=== PATIENT | female | born 1955 | race Caucasian/White ===

== ENCOUNTER → 2019-03-12 | Outpatient (CLI) | payer BC, SELFPAY ==
--- NOTE | 2019-03-12 08:14 | BI_ITS ---
MAMMOGRAPHY - BILATERAL SCREENING REASON FOR EXAM: Female, 63 years old. Routine annual screening examination. PERTINENT HISTORY: Non-contributory. TECHNIQUE: Digital bilateral breast bibiana (3D mammographic acquisition) in the CC and MLO projections. 2-D mediolateral oblique (MLO) and craniocaudad (CC) views of both breasts were obtained. CAD: Full Field Digital Mammography with Computer Added Detection was performed. COMPARISON: Comparison is made with prior outside examination dated November 24, 2015. FINDINGS: Breast Composition: The breasts are heterogeneously dense, which may obscure small masses. There are no dominant masses or suspicious calcifications. Stable appearance of the benign-appearing bilateral axillary lymph nodes. No other significant abnormalities are identified. There has been no significant change since the prior study. BI/SCREEN MAMM (CAD) W/BIBIANA BILAT IMPRESSION: Stable bilateral screening mammogram. Yearly follow-up mammogram recommended. (A) ASSESSMENT CATEGORY: BIRADS Category 2: Benign. A letter regarding these results will be sent to the patient by the facility within 30 days. Approximately 10% of breast cancers are not detected by mammography. A normal mammogram should not delay biopsy of a clinically suspicious abnormality. [id number] Electronically Signed: Rick Smith, at 15:17 EDT , Service support ,
[2019-03-19 16:24] LABS: HPV APTIMA, High Risk Negative (Negative)
== END | disposition home or self-care (01) ==
PROVIDERS: Family Provider Family Medicine; PCP Family Medicine; Referring Provider Nurse Practitioner Women's Health; Visit Provider Nurse Practitioner Women's Health
DX: Z12.31 Encounter for screening mammogram for malignant neoplasm of breast (principal); Z12.4 Encounter for screening for malignant neoplasm of cervix
CPT/HCPCS: 77063; 77067; 87624; 88175; G0145

== ENCOUNTER → 2019-03-27 | Outpatient (CLI) | payer BC, SELFPAY ==
[2019-03-27 11:21] VITALS: BMI 37.3
[2019-04-01 20:52] LABS: HPV APTIMA, High Risk Negative (Negative)
== END | disposition home or self-care (01) ==
LOC: LABSPEC 14:43
PROVIDERS: Family Provider Family Medicine; PCP Family Medicine; Visit Provider Nurse Practitioner Women's Health
DX: R87.615 Unsatisfactory cytologic smear of cervix (principal)
CPT/HCPCS: 87624; 88175; G0145

== ENCOUNTER → 2020-03-16 07:58 | Outpatient (CLI) | payer BC, SELFPAY ==
[2019-03-27 11:21] VITALS: BMI 37.3
--- NOTE | 2020-03-16 07:58 | BI_ITS ---
MAMMOGRAPHY - BILATERAL SCREENING REASON FOR EXAM: Female, 64 years old. Routine annual screening examination. PERTINENT HISTORY: Non-contributory. TECHNIQUE: Digital bilateral breast bibiana (3D mammographic acquisition) in the CC and MLO projections. 2-D mediolateral oblique (MLO) and craniocaudad (CC) views of both breasts were obtained. CAD: Full Field Digital Mammography with Computer Added Detection was performed. COMPARISON: Comparison is made with prior study dated 03/12/2019. FINDINGS: Breast Composition: The breasts are heterogeneously dense, which may obscure small masses. There are no dominant masses or suspicious calcifications. Stable benign appearing bilateral axillary lymph nodes. No other significant abnormalities are identified. There has been no significant change since the prior study. BI/SCREEN MAMM (CAD) W/BIBIANA BILAT IMPRESSION: Stable bilateral screening mammogram. Yearly follow-up mammogram recommended. (A) ASSESSMENT CATEGORY: BIRADS Category 2: Benign. A letter regarding these results will be sent to the patient by the facility within 30 days. Approximately 10% of breast cancers are not detected by mammography. A normal mammogram should not delay biopsy of a clinically suspicious abnormality. [id number] Electronically Signed: Rick Smith, at 9:47 EDT , Service support ,
== END ==
PROVIDERS: PCP Family Medicine; Referring Provider Nurse Practitioner Women's Health; Visit Provider Nurse Practitioner Women's Health
DX: Z12.31 Encounter for screening mammogram for malignant neoplasm of breast (principal)
CPT/HCPCS: 77063; 77067

== ENCOUNTER → 2021-04-06 07:47 | Outpatient (CLI) | payer BC, SELFPAY ==
[2020-03-16 08:37] VITALS: BMI 37.3
--- NOTE | 2021-04-06 07:50 | BI_ITS ---
MAMMOGRAPHY - BILATERAL SCREENING REASON FOR EXAM: Female, 65 years old. Routine annual screening examination. PERTINENT HISTORY: Non-contributory. TECHNIQUE: Digital bilateral breast bibiana (3D mammographic acquisition) in the CC and MLO projections. 2-D mediolateral oblique (MLO) and craniocaudad (CC) views of both breasts were obtained. CAD: Full Field Digital Mammography with Computer Added Detection was performed. COMPARISON: Comparison is made with prior study dated 03/08/2020 03/12/2019. FINDINGS: Breast Composition: The breasts are heterogeneously dense, which may obscure small masses. There are no dominant masses or suspicious calcifications. Stable benign-appearing bilateral axillary lymph nodes. No other significant abnormalities are identified. There has been no significant change since the prior study. BI/SCRN MAMM (CAD)W/BIBAINA BILAT IMPRESSION: Stable bilateral screening mammogram. Yearly follow-up mammogram recommended. (A) ASSESSMENT CATEGORY: BIRADS Category 2: Benign. A letter regarding these results will be sent to the patient by the facility within 30 days. Approximately 10% of breast cancers are not detected by mammography. A normal mammogram should not delay biopsy of a clinically suspicious abnormality. [id number] Electronically Signed: Rick Smith MD at 9:04 EDT , Service support ,
== END ==
PROVIDERS: PCP Family Medicine; Visit Provider Obstetrics & Gynecology
DX: Z12.31 Encounter for screening mammogram for malignant neoplasm of breast (principal)
CPT/HCPCS: 77063; 77067

== ENCOUNTER 2021-06-30 15:25 | Outpatient (CLI) | payer MEDICARE, OTHER, SELFPAY | END 2021-06-30 23:59 | disposition short-term general hospital (02) | LOC: LABSPEC 15:27 | PROVIDERS: PCP Family Medicine; Referring Provider Nurse Practitioner Women's Health; Visit Provider Nurse Practitioner Women's Health | DX: N39.0 Urinary tract infection, site not specified (principal) | CPT/HCPCS: 87086; 87088 ==

== ENCOUNTER 2021-07-06 10:46 | Outpatient (CLI) | payer MEDICARE, OTHER, SELFPAY ==
--- NOTE | 2021-07-06 10:49 | US_ITS ---
STUDY: ULTRASOUND OF THE FEMALE PELVIS - COMPLETE REASON FOR EXAM: Female, 66 years old. Abnormal uterine bleeding LMP: Unknown. TECHNIQUE: Transabdominal and Transvaginal TECHNICAL QUALITY: Adequate. COMPARISON: None. FINDINGS: The uterus is anteverted and is tilted to the left side of the pelvis. The uterus measures 7.1 x 4.7 x 3.1 cm. Normal uterine cervix. The endometrium measures 6 mm in thickness, and is heterogeneous (striated). There is endometrial fluid likely hemorrhage. There is no demonstrated endometrial mass. There is no demonstrated myometrial mass. I.U.D. - The patient does not have an I.U.D. Neither ovary is visualized. There is no fluid in the cul-de-sac. Bladder is incompletely distended. US/Transvaginal Non- IMPRESSION: Endometrium is abnormally thickened at 6 mm. There is also some anechoic fluid within the cervix suggesting hemorrhage. Since the patient is having postmenopausal bleeding, further evaluation of the endometrium to include biopsy is recommended to exclude carcinoma. No suspicious adnexal mass or free fluid Electronically Signed: Steve Girard MD at 17:27 EST , Service support ,
== END 2021-07-06 23:59 | disposition short-term general hospital (02) ==
PROVIDERS: PCP Family Medicine; Referring Provider Nurse Practitioner Women's Health; Visit Provider Nurse Practitioner Women's Health
DX: N93.9 Abnormal uterine and vaginal bleeding, unspecified (principal)
CPT/HCPCS: 76830

== ENCOUNTER 2021-07-13 13:19 | Outpatient (CLI) | payer MEDICARE, BC, OTHER, SELFPAY ==
--- NOTE | 2021-07-13 11:50 | EMB_PTH ---
PATIENT: YENI RING LOC: [facility] U#:[id number] AGE/SX: 66/F ROOM: RE07/13/[address]: ABIDA Hendricks : 1955 BED: DIS: 07/13/2021 SPEC #: [id number] RECD: 07/13/21 13:15 STATUS: TRES REBindu #: [id number] ALTON: 07/13/21 11:[address]: Keke Ignacio NP DEPT: SURGICAL PATHOLOGY RECD BY: Beti Aguiar ENTERED: 07/13/21 14:12 SP TYPE: ENDOM BX/C RAJ DR: Dr. Kervin Metzger MD Tissues: Endometrium, NOS Procedures: Surgery Specimen Level IV HEADER OPERATION: Endometrial biopsy PRE-OP DIAGNOSIS: PMB TISSUE SUBMITTED: Endometrial biopsy MICROSCOPIC DIAGNOSIS Endometrial biopsy: Simple cystic endometrial hyperplasia without atypia. ALANA:gurpreet 07/14/2021 MICROSCOPIC DESCRIPTION Slides are reviewed. GROSS DESCRIPTION Received is one container labeled with the patient's name and not further designated. The specimen consists of multiple irregular fragments of hemorrhagic soft tissue that in aggregate measure 2.5 x 1.5 x 0.1 cm. The specimen is totally submitted in one cassette. / SJ:gurpreet 07/13/2021 TC:5 CPT: 11671
== END 2021-07-13 23:59 | disposition short-term general hospital (02) ==
LOC: LABSPEC 13:20
PROVIDERS: PCP Family Medicine; Visit Provider Nurse Practitioner Women's Health
DX: N85.01 Benign endometrial hyperplasia (principal)
CPT/HCPCS: 88305

== ENCOUNTER 2021-08-10 11:54 | Day surgery (SDC) | payer MEDICARE, OTHER, SELFPAY ==
[2021-08-10] VITALS (7 sets, daily range): BP systolic 122–137; BP diastolic 60–84; PULSE 69–80; RESP 16–18; TEMP 36.1–36.5; O2SAT 92–96; BMI 35.4
--- NOTE | 2021-08-10 08:12 | PCM.HP.BLA ---
History and Physical Date of Admission: 08/10/21 MR#:[id number]:[id number]: YENI RING ANNRep #:[id number]:[id number] Provider:Dr. Gill Vincent DOAge/Sex: 66/F [facility] Intake Vital Signs 07/21/21 11:43 Height 5 ft 7 in Weight: 228 lb 4 oz BMI 35.7 BP 134/80 H Intake Visit Reasons: possible D&C Test Rider Required: No Is patient in pain?: No Allergies No Known Allergies Allergy (Verified 07/21/21 11:43) Medications aspirin 81 mg tablet,delayed release 81 mg PO DAILY 03/12/19 [History Confirmed 07/21/21] fluoxetine 20 mg capsule 20 mg PO DAILY 03/12/19 [History Confirmed 07/21/21] loratadine 10 mg tablet 10 mg PO DAILY 03/12/19 [History Confirmed 07/21/21] meclizine 12.5 mg tablet 12.5 mg PO BID-TID PRN 03/12/19 [History Confirmed 07/21/21] metformin 500 mg tablet 500 mg PO BID 03/12/19 [History Confirmed 07/21/21] metoprolol tartrate 50 mg tablet 50 mg PO BID 03/12/19 [History Confirmed 07/21/21] omega-3 fatty acids 1,000 mg capsule 1,000 mg PO DAILY 03/12/19 [History Confirmed 07/21/21] glipizide 5 mg tablet 5 mg PO DAILY 04/06/21 [History Confirmed 07/21/21] Post menopausal: No Patient : No : No [facility] Medical History (Updated 07/21/21 @ 15:[address] Gill Vincent DO) Anxiety Diabetes mellitus Mitral valve prolapse Seasonal allergies Surgical History S/P cholecystectomy S/P tonsillectomy S/P tubal ligation Family History Mother Heart disease Myocardial infarction Father Pancreatic cancer Grandmother Heart disease Social History Smoking Status: Never smoker alcohol intake: never substance use type: does not use caffeine: Yes what type of physical activity do you participate in: none seatbelt use: always do you feel safe at home: Yes additional social history: - Patient is retired HPI consult for possible D&C Details: YENI RING is a 66 year old who presents for the emb finding of simple hyperplasia without atypia. She also would like to discuss taking up her bladder and having the whole uterus removed. Pregancy History 2 Elective abortions Hx Para 2 Spontaneous abortions Hx # Term Pregnancies Ectopic pregnancies Hx # Pregnancies Multiple births # of living children Past Pregnancies Del. Date Name GA/Weeks Outcome Route Bth Weight Gen Labor Lgth Anesthesia Del Locatn Provider FOB Unknown Ifrah-1988 Unknown Sharlene-1991 ROS Const ROS Unobtainable: All systems reviewed & are unremarkable except as noted in H Resp Resp: Reports system reviewed and no additional complaints, except as documented; Denies cough GI GI: Reports as per HPI Psych Psych: Reports system reviewed and no additional complaints, except as documented Exam Const General: cooperative, healthy appearing, comfortable and no acute distress Resp Effort & Inspection: normal respiratory effort Skin General: no rashes or lesions noted Psych Appearance: grossly normal Speech and Movement: speech and movement normal Coding Level of Care Code Off vis,est,level 4 Diagnoses Postmenopausal bleeding N95.0 Cystocele with incomplete uterovaginal prolapse N81.2 Mitral valve prolapse I34.1 Endometrial hyperplasia without atypia N85.00 Assessment and Plan Assessment and Plan (1) Postmenopausal bleeding: Status: Acute Comment: US 6mm lining. EMB pending (2) Cystocele with incomplete uterovaginal prolapse: Status: Acute Comment: not problematic (3) Mitral valve prolapse: Status: Chronic (4) Endometrial hyperplasia without atypia: Status: Acute Plan - Dr. Gill Vincent DO: plan for hysteroscopy D&C and if benign, consult with Dr. plaza for cystocele repair and plan for hysterectomy. UPDATE- I have seen the patient and performed any clinically relevant updates to the history and physical exam. Gill Vincent DO
[2021-08-10 13:02] LABS: Absolute Lymphocyte Count 2.85 X10^3/uL (0.83-4.51); Absolute Neutrophil Count 4.9 X10^3/uL (2.0-7.7); Basophil# 0.03 X10^3/uL; Basophil% 0.3 % (0-1); Eosinophil# 0.28 X10^3/uL; Eosinophils% 3.2 % (0-5); Hematocrit 41.3 % (37-47); Hemoglobin 14.1 g/dL (12.0-15.0); Lymphocyte # 2.85 X10^3/ul (0.83-4.51); Lymphocyte % 32.4 % (19-41); Mean Corp Hgb Conc 34.1 g/dL (32-36); Mean Corpuscular Hgb 31.8 pg (27.0-32.0); Mean Platelet Vol. 10.5 fl (6.2-12.0); NRBC Flagged by Analyzer 0 % (0-5); Neutrophil % 55.6 % (47-70); Platelet Count 238 K/mm3 (150-450); RBC Distribution Width CV 12.4 % (11.6-14.6); RBC Distribution Width SD 42.5 fl (35.1-43.9); Red Blood Count 4.44 M/mm3 (4.2-5.4); White Blood Count 8.8 K/mm3 (4.4-11.0)
--- NOTE | 2021-08-10 13:30 | EMB_PTH ---
PATIENT: YENI RING [place] [facility] [place][id number] AGE/SX: 66/F ROOM: RE08/10/[address]: Dr. Gill Vincent DO : 1955 BED: DIS: 08/10/2021 SPEC #: [id number] RECD: 08/10/21 14:40 STATUS: TRES WHITEBindu #: [id number] ALTON: 08/10/21 13:[address]: Gill Vincent DEPT: SURGICAL PATHOLOGY RECD BY: Beti Aguiar ENTERED: 08/11/21 09:17 SP TYPE: ENDOM BX/C OTHR DR: Dr. Kervin Metzger MD Tissues: Endometrium, NOS Procedures: Surgery Specimen Level IV HEADER OPERATION: Hysteroscopy, dilation and curettage PRE-OP DIAGNOSIS: Postmenopausal bleeding, cystocele with incomplete uterovaginal prolapse, endometrial hyperplasia TISSUE SUBMITTED: Endometrial curettings MICROSCOPIC DIAGNOSIS Endometrium, curettings: Strips of benign superficial endometrial, endocervical and squamous mucosa. AM:gurpreet 08/12/2021 MICROSCOPIC DESCRIPTION Slides are reviewed. GROSS DESCRIPTION Received in fixative is one container labeled with the patient's name and designated endometrial curettings. The specimen consists of multiple irregular fragments of campbell soft tissue that in aggregate measure 2 x 2 x 0.2 cm. The specimen is totally submitted in one cassette. / AM:gurpreet 08/11/2021 TC:5 CPT: 11517
--- NOTE | 2021-08-10 13:41 | PCM.OP.BLANK ---
Operative Report Date of Procedure: 08/10/21 preoperative diagnosis: postmenopausal bleeding and office biopsy diagnosis of simple hyperplasia without atypia Postoperative diagnosis:postmenopausal bleeding and office biopsy diagnosis of simple hyperplasia without atypia Surgeon: Dr. Gill Vincent DO EBL: minimal urine output: 30cc findings: atrophic appearing uterus specimens removed: endometrial curettings Details of the procedure: Patient was prepped and draped in a normal sterile fashion under MAC anesthesia. A weighted speculum was placed in the vagina and the anterior lip of the cervix was grasped with a single-tooth tenaculum. A paracervical block was placed with 1% lidocaine. Cervix was progressively dilated to allow passage of a 5 mm hysteroscope. The lining was fully visualized and noted to have an atrophic appearing lining . Uterine sounded to cm. Curettage was performed and specimen was sent to pathology. All instruments were removed from the vagina and excellent hemostasis was noted. Patient was awoken and taken to recovery in stable condition. Multi Select Codes Urinary/Genital Urinary/Genital CPT Codes: 19579 Hysteroscopy,EMC, Polypectomy
[2021-08-10] MEDS: Lidocaine 1% (20 ml mdv) 20 ML Vial (13:45)
--- NOTE | 2021-08-10 13:55 | PCM.DC ---
Discharge Instructions Diet Discharge Diet: No restrictions Activity Discharge Activity: Return to Normal Activity, May Shower and May Take a Tub Bath (after 1 week) May resume sexual activity in: 1-2 weeks Weight Bearing Status: Weight bearing as tolerated Lifting Restrictions: none Dressing / Incision Call your doctor if you observe: Fever of 101 or Higher, Using more than 1 pad per hour, Shortness of breath and Uncontrolled pain Follow Up Care Please Follow Up With: Gill Vincent DO When: Call [phone] to schedule appointment. Test Results: Test results from this visit will be discussed in further detail at your follow-up appointment, if applicable. Discharge Plan Admission Primary Reason for Your Visit: hysteroscopy D&C Attending Provider: Gill Vincent Primary Care Provider: Kervin Metzger Discharge Orders/Prescriptions Prescriptions: New ibuprofen 600 mg tablet 600 mg PO Q6H PRN (Reason: pain (scale score 4-6)) 7 Days Qty: 28 RF: 0 Continued metformin 500 mg tablet 1,000 mg PO DAILY RF: 0 fluoxetine 20 mg capsule 20 mg PO DAILY RF: 0 metoprolol tartrate 50 mg tablet 25 mg PO BID RF: 0 aspirin 81 mg tablet,delayed release (DR/EC) 81 mg PO DAILY RF: 0 omega-3 fatty acids [Fish Oil Concentrate] 1,000 mg capsule 1,000 mg PO DAILY RF: 0 loratadine 10 mg tablet 10 mg PO PRN PRN (Reason: ALLERGIES) RF: 0 meclizine 12.5 mg tablet 12.5 mg PO BID-TID PRN (Reason: Vertigo) RF: 0 glipizide 5 mg tablet 10 mg PO DAILY RF: 0 multivitamin Tablet 1 tab PO DAILY RF: 0 atorvastatin 10 mg tablet 10 mg PO DAILY RF: 0 glipizide 5 mg tablet 5 mg PO 1999 RF: 0 Referrals / Follow Up: Kervin Metzger MD [Primary Care Provider] - Disposition Disposition (needs filled in before D/C Order can be placed): Home, Self Care
[2021-08-10 18:07] LABS: Bedside Glucose 224 mg/dL (70-110)
== END 2021-08-10 23:59 | disposition home or self-care (01) ==
LOC: SDC 11:57 → AC 11:58
PROVIDERS: PCP Family Medicine; Referring Provider Obstetrics & Gynecology; Visit Provider Obstetrics & Gynecology
PROC: 0UDB8ZZ Extraction of Endometrium, Via Natural or Artificial Opening Endoscopic (ICD-10-PCS; CPT 58558; principal; 2021-08-10 13:20)
DX: N81.4 Uterovaginal prolapse, unspecified (principal); E11.9 Type 2 diabetes mellitus without complications; N95.0 Postmenopausal bleeding; Z79.84 Long term (current) use of oral hypoglycemic drugs; N85.01 Benign endometrial hyperplasia; Z79.82 Long term (current) use of aspirin; Z79.899 Other long term (current) drug therapy; I10 Essential (primary) hypertension; F41.9 Anxiety disorder, unspecified
CPT/HCPCS: 58558; 00952; 82962; 85025; 86850; 86900; 86901; 88305; J7120; J2405

== ENCOUNTER → 2022-04-20 | Outpatient (CLI) | payer MEDICARE, OTHER, SELFPAY ==
--- NOTE | 2022-04-20 09:09 | BI_ITS ---
MAMMOGRAPHY - BILATERAL SCREENING REASON FOR EXAM: Female, 66 years old. Routine annual screening examination. PERTINENT HISTORY: Non-contributory. TECHNIQUE: Digital bilateral breast bibiana (3D mammographic acquisition) in the CC and MLO projections. 2-D mediolateral oblique (MLO) and craniocaudad (CC) views of both breasts were obtained. CAD: Full Field Digital Mammography with Computer Added Detection was performed. COMPARISON: Comparison is made with prior study 04/06/2021 and 03/16/2020. FINDINGS: Breast Composition: The breasts are heterogeneously dense, which may obscure small masses. There are no dominant masses or suspicious calcifications. Stable benign-appearing right axillary lymph nodes. No other significant abnormalities are identified. There has been no significant change since the prior study. BI/SCRN MAMM (CAD)W/BIBIANA BILAT IMPRESSION: Stable bilateral screening mammogram. Yearly follow-up mammogram recommended. (A) ASSESSMENT CATEGORY: BIRADS Category 2: Benign. A letter regarding these results will be sent to the patient by the facility within 30 days. Approximately 10% of breast cancers are not detected by mammography. A normal mammogram should not delay biopsy of a clinically suspicious abnormality. [id number] Electronically Signed: Rick Smith MD at 10:04 EDT ,
== END | disposition home or self-care (01) ==
LOC: OPBI 09:07
PROVIDERS: PCP Family Medicine; Referring Provider Nurse Practitioner Women's Health; Visit Provider Nurse Practitioner Women's Health
DX: Z12.31 Encounter for screening mammogram for malignant neoplasm of breast (principal)
CPT/HCPCS: 77063; 77067

== ENCOUNTER → 2022-07-27 | Outpatient (CLI) | payer MEDICARE, OTHER, SELFPAY ==
--- NOTE | 2022-07-27 16:04 | US_ITS ---
INDICATION: UTI EXAMINATION: Ultrasound US Kidney(s) complete (eg, kidneys and bladder) TECHNIQUE: Franz scale and color doppler images were obtained of the kidneys. COMPARISON: None. FINDINGS: RIGHT KIDNEY: 11.2 x 5.1 x 5.2 cm. There is no hydronephrosis. No shadowing calculus, focal lesion or perinephric collection is demonstrated. LEFT KIDNEY: 10.8 x 4.7 x 5.1 cm. There is no hydronephrosis. No shadowing calculus, focal lesion or perinephric collection is demonstrated. URINARY BLADDER: No acute abnormality. Both ureter jets are visualized. US/Kidney and Bladder IMPRESSION: Negative renal ultrasound. Electronically Signed: Iván Mcdaniel MD at 20:03 EST ,
== END | disposition home or self-care (01) ==
LOC: US 16:03
PROVIDERS: PCP Nurse Practitioner Primary Care; Referring Provider Urology; Visit Provider Urology
DX: N39.0 Urinary tract infection, site not specified (principal)
CPT/HCPCS: 76770

== ENCOUNTER → 2023-05-01 | Outpatient (CLI) | payer MEDICARE, SELFPAY ==
--- NOTE | 2023-05-01 08:33 | BI_ITS ---
MAMMOGRAPHY - BILATERAL SCREENING REASON FOR EXAM: Female, 67 years old. Routine annual screening examination. PERTINENT HISTORY: Non-contributory. TECHNIQUE: Digital bilateral breast bibiana (3D mammographic acquisition) in the CC and MLO projections. 2-D mediolateral oblique (MLO) and craniocaudad (CC) views of both breasts were obtained. CAD: Full Field Digital Mammography with Computer Added Detection was performed. COMPARISON: Comparison is made with prior study dated April 20, 2022 and April 06, 2021. FINDINGS: Breast Composition: There are scattered areas of fibroglandular density. There are no dominant masses or suspicious calcifications. Stable benign-appearing bilateral axillary lymph nodes. No other significant abnormalities are identified. There has been no significant change since the prior study. BI/SCRN MAMM (CAD)W/BIBIANA BILAT IMPRESSION: Stable bilateral screening mammogram. Yearly follow-up mammogram recommended. (A) ASSESSMENT CATEGORY: BIRADS Category 2: Benign. A letter regarding these results will be sent to the patient by the facility within 30 days. Approximately 10% of breast cancers are not detected by mammography. A normal mammogram should not delay biopsy of a clinically suspicious abnormality. [id number] Electronically Signed: Rick Smith MD at 9:50 EST ,
== END | disposition home or self-care (01) ==
LOC: OPBI 08:32
PROVIDERS: PCP Nurse Practitioner Primary Care; Referring Provider Nurse Practitioner Women's Health; Visit Provider Nurse Practitioner Women's Health
DX: Z12.31 Encounter for screening mammogram for malignant neoplasm of breast (principal)
CPT/HCPCS: 77063; 77067

== ENCOUNTER → 2024-04-05 | Outpatient (CLI) | payer SELFPAY ==
--- NOTE | 2024-04-04 11:41 | NURSING ---
Patients physicians office contacted to clarify pts HR, will contact the MD and determine if new orders needed
--- NOTE | 2024-04-05 13:07 | CT_ITS ---
STUDY: CT CHEST WITHOUT CONTRAST REASON FOR EXAM: Female, 68 years old. HLD RADIATION DOSAGE (If Supplied By Facility): CTDIvol = ( 12.19 ) mGy, DLP = ( 243.79 ) mGycm TECHNIQUE: Transaxial imaging was performed without the administration of intravenous contrast material. Cardiac over read examination. Individualized dose optimization techniques were used for this CT. COMPARISON: No relevant priors. FINDINGS: CHEST The lungs are normal. There is no demonstrated pleural abnormality. There are calcifications of the coronary arteries. Normal mediastinum. Normal hilar regions. Normal unenhanced pulmonary arteries. There is atherosclerotic calcification of the aortic arch. There are degenerative changes of the thoracic spine. There is no demonstrated abnormality of the visualized upper abdomen. CT/Limited Chest CT Cardiac Only IMPRESSION: Coronary artery calcification. Electronically Signed: Rick Smith MD at 10:26 EDT ,
--- NOTE | 2024-04-08 19:43 | CA.SCORE ---
Calcium Scoring Date of Study:: 04/05/24 Indications Indications: HLD Coronary Calcium Scoring: High-resolution Computed Tomographic imaging of the chest was performed on [04/05/24 ], with particular attention paid to the coronary arteries. Images from the examination were analyzed for the presence and extent of coronary artery calcification , using coronary calcium quantification software. The patient tolerated the procedure well and there were no complications. The results of the coronary calcification analysis are provided below. Findings Coronary Artery Left Main (LM): 6.9 Left Anterior Descending (LAD): 12 Left Circumflex (LCX): 0 Right Coronary Artery (RCA): 4 Total Agatston Score: 22.9 Percentile Rankin-50% Calcium Scoring Interpretation: Different methods to categorize the overall amount of coronary plaque. Overall amount CAC SIS Visual of coronary plaque P1 Mild -100 <2 1-2 vessels with mild amount of plaque P2 Moderate 101-300 3-4 1-2 vessels with moderate amount, 3 vessels with mild amount of plaque P3 Severe 301-999 5-7 3 vessels with moderate amount, 1 vessel with severe amount of plaque P4 Extensive >1000 >8 2-3 vessels with severe amount of plaque Conclusion: Mild atherosclerotic plaquing
== END | disposition home or self-care (01) ==
LOC: CT 13:05
PROVIDERS: PCP Nurse Practitioner Primary Care; Referring Provider Nurse Practitioner Family; Visit Provider Nurse Practitioner Family
DX: I34.1 Nonrheumatic mitral (valve) prolapse (principal); E78.2 Mixed hyperlipidemia
CPT/HCPCS: 75571; 76380

== ENCOUNTER → 2024-05-01 | Outpatient (CLI) | payer MEDICARE, OTHER, SELFPAY ==
--- NOTE | 2024-05-01 08:37 | BI_ITS ---
MAMMOGRAPHY - BILATERAL SCREENING REASON FOR EXAM: Female, 68 years old. Routine annual screening examination. PERTINENT HISTORY: Non-contributory. TECHNIQUE: Digital bilateral breast bibiana (3D mammographic acquisition) in the CC and MLO projections. 2-D mediolateral oblique (MLO) and craniocaudad (CC) views of both breasts were obtained. CAD: Full Field Digital Mammography with Computer Added Detection was performed. COMPARISON: Comparison is made with prior study May 01, 2023 and April 20, 2022. FINDINGS: Breast Composition: There are scattered areas of fibroglandular density. There are no dominant masses or suspicious calcifications. Stable bilateral fat containing axillary lymph nodes. No other significant abnormalities are identified. There has been no significant change since the prior study. BI/SCRN MAMM (CAD)W/BIBIANA BILAT IMPRESSION: Stable bilateral screening mammogram. Yearly follow-up mammogram recommended. (A) ASSESSMENT CATEGORY: BIRADS Category 2: Benign. A letter regarding these results will be sent to the patient by the facility within 30 days. Approximately 10% of breast cancers are not detected by mammography. A normal mammogram should not delay biopsy of a clinically suspicious abnormality. [id number] Electronically Signed: Rick Smith MD at 9:32 EST ,
== END | disposition home or self-care (01) ==
LOC: OPBI 08:37
PROVIDERS: PCP Nurse Practitioner Primary Care; Referring Provider Nurse Practitioner Women's Health; Visit Provider Nurse Practitioner Women's Health
DX: Z12.31 Encounter for screening mammogram for malignant neoplasm of breast (principal)
CPT/HCPCS: 77063; 77067